=== PATIENT | male | born 1955 | race African-American/Black ===

== ENCOUNTER 2019-01-16 21:47 | Emergency (ER) | payer MEDICARE, OTHER ==
[2019-01-16] MEDS ORDERED: IBUPROFEN 600 MG TABLET PO ONE (22:53)
[2019-01-16] MEDS ORDERED: HYDROCODONE/ACETAMINOPHEN 5-325 MG TABLET PO ONE (22:53)
--- NOTE | 2019-01-16 22:56 | ER Document Report ---
ED General - General Chief Complaint: Knee Pain Stated Complaint: KNEE PAIN Time Seen by Provider: 01/16/19 22:45 Primary Care Provider: SHANICE ABDULLAHI PA-C [Primary Care Provider] - Follow up as needed Mode of Arrival: Ambulatory Information source: Patient TRAVEL OUTSIDE OF THE [place] IN LAST 30 DAYS: No - HPI Patient complains to provider of: Pain in left knee Onset: Last week Onset/Duration: Gradual, Persistent Quality of pain: Sharp Severity: Moderate Pain Level: 3 Associated symptoms: None Exacerbated by: Movement, Walking Relieved by: Denies Similar symptoms previously: No Recently seen / treated by doctor: No Notes: 63-year-old -[place] male coming in today with left knee pain. History of surgery in the past. Starting hurt more over the past 2 to 3 days. No specific injury. No swelling. - Related Data Allergies/Adverse Reactions: No Known Allergies Allergy (Verified 01/16/19 22:21) Past Medical History - General Information source: Patient - Social History Smoking Status: Never Smoker Family History: Reviewed & Not Pertinent - Past Medical History Cardiac Medical History: Reports: Hx Hypercholesterolemia, Hx Hypertension Musculoskeletal Medical History: Reports Hx Arthritis Past Surgical History: Reports: Hx Orthopedic Surgery - Right Knee surgery - Immunizations Hx Diphtheria, Pertussis, Tetanus Vaccination: Yes Review of Systems - Review of Systems Notes: Constitutional: No fevers. No chills. EENT: No eye redness. No eye pain. No ear pain. No sore throat. Cardiovascular: No chest pain. No palpitations. Respiratory: No cough. No shortness of breath. No respiratory distress. Gastrointestinal: No abdominal pain. No nausea, vomiting, or diarrhea. Genitourinary: Atraumatic. No lesions. No pain. No discharge. Musculoskeletal: Left knee pain Skin: No rash or lesions. Lymphatic: No swollen lymph nodes. Neurologic: No headache. No syncope. Psychiatric: No suicidal or homicidal ideation. -: Yes ROS unobtainable due to patient's medical condition Physical Exam - Vital signs Vitals: Temp Pulse Resp BP Pulse Ox 97.8 F 77 18 137/80 H 97 01/16/19 22:19 01/16/19 22:19 01/16/19 22:19 01/16/19 22:19 01/16/19 22:19 - Notes Notes: General: Well-developed, well-nourished. In no acute distress. Non-toxic appearing. Cardiac: Well-perfused. Regular rate and rhythm. No murmurs, rubs, or gallops. Pulmonary: No respiratory distress. No cyanosis. Bilateral lung fiels are clear to auscultation. Abdominal: Non-distended. Non-rigid. Bowels sounds are present in all four quadrants. No guarding or rebound. HEENT: Head is atraumatic. Conjunctivae not reddened. No tearing. PERRL. EOMI. Orbits atraumatic. No periorbital swelling or erythema. Oropharynx is without erythema, swelling, or exudates. Neck: Supple. No adenopathy. No meningismus. Dermatologic: Warm with good turgor. No rash. Atraumatic. Chest: Atraumatic. No chest wall tenderness to palpation. Musculoskeletal: Left lower extremity examined. There is tenderness palpation of the right knee superior medial aspect. No deformity. No swelling. No erythema. No heat. No ligamentous laxity. No crepitus. No calf tenderness. Distal neurovascular exam is intact Genitourinary: Examination deferred Neurologic: No gross neurologic deficits. Psychiatric: Normal mood. Course - Re-evaluation Re-evalutation: 01/16/19 23:53 X-rays show tricompartmental arthritis. - Vital Signs Vital signs: Temp Pulse Resp BP Pulse Ox 97.8 F 77 18 137/80 H 97 01/16/19 22:19 01/16/19 22:19 01/16/19 22:19 01/16/19 22:19 01/16/19 22:19 Discharge - Discharge Clinical Impression: Arthritis of knee Condition: Good Disposition: HOME, SELF-CARE Instructions: Arthritis (OM) Prescriptions: Tramadol HCl/Acetaminophen [Ultracet 37.5 mg/325 mg Tablet] 1 each PO Q6HP PRN #15 tablet PRN Reason: Referrals: SHANICE ABDULLAHI PA-C [Primary Care Provider] - Follow up as needed
--- NOTE | 2019-01-16 23:38 | RADIOLOGY REPORT (SQ) ---
EXAM DESCRIPTION: XR KNEE 3 VIEWS COMPLETED DATE/TME: 01/16/2019 22:53 CLINICAL HISTORY: 63 years, Male, PAIN COMPARISON: None. NUMBER OF VIEWS: 3 TECHNIQUE: 3 view left knee LIMITATIONS: None. FINDINGS: Moderate tricompartmental degenerative change. No acute fracture No evidence for joint effusion IMPRESSION: Moderate degenerative change copyright 2010 [employer]- All Rights Reserved
[2019-01-17 00:13] VITALS: BP 124/77
== END 2019-01-17 00:13 | disposition home or self-care (01) ==
LOC: ER 21:47
DX: M17.12 Unilateral primary osteoarthritis, left knee (principal); M25.562 Pain in left knee; I10 Essential (primary) hypertension; Z98.890 Other specified postprocedural states
CPT/HCPCS: 99283; 73562; A9270 ×2